=== PATIENT | female | born 1980 | race Two or more races ===

== ENCOUNTER 2020-06-25 11:10 | Emergency (ER) | payer SELFPAY ==
[~2020-06-25] VITALS: Ht 167.6 cm; Wt 85.0 kg
[~2020-06-25 11:10] MED LIST: ONDA4TAB10 SL
[2020-06-25] MEDS ORDERED: ASPIRIN 325 MG TABLET PO ONE (11:30)
[2020-06-25 11:41] LABS: BASO # 0.1 x10^3/uL (0.0-0.2); BASO % 1 % (0-3); EOS # 0.1 x10^3/uL (0.0-0.7); EOS % 1 % (0-3); HEMATOCRIT 34.1 % (36.0-47.0); HEMOGLOBIN 11.1 g/dL (12.0-15.5); LYMPH % 19 % (24-48); MEAN CORPUSCULAR HEMOGLOBIN 26 pg (25-35); MEAN CORPUSCULAR HGB CONC 32 g/dL (31-37); MEAN CORPUSCULAR VOLUME 79 fL (79-100); MONO # 0.6 x10^3/uL (0.0-1.1); MONO % 6 % (0-9); NEUT # 7.6 x10^3/uL (1.8-7.7); NEUT % 73 % (31-73); PLATELET COUNT 328 x10^3/uL (140-400); RED BLOOD COUNT 4.29 x10^6/uL (3.50-5.40); RED CELL DISTRIBUTION WIDTH 15.4 % (11.5-14.5); WHITE BLOOD COUNT 10.4 x10^3/uL (4.0-11.0)
--- NOTE | 2020-06-25 11:46 | RAD ---
PORTABLE CHEST 1V History: Reason: chest paiN / Spl. Instructions: / History: Comparison: None. Findings: Low lung volumes. Patchy bibasilar opacities, left greater than right. Small left pleural effusion. No pneumothorax. Impression: 1. Low lung volumes with patchy bibasilar opacities, may represent atelectasis or developing consolidations. Recommend follow-up. 2. Small left pleural effusion. Electronically signed by: Jose Leigh DO (06/25/2020 11:43 AM) [id number]
[2020-06-25 11:52] LABS: CALCIUM 9.1 mg/dL (8.5-10.1); CREATININE 0.6 mg/dL (0.6-1.0); GFR 111.9
[2020-06-25 11:57] LABS: ALBUMIN 3.8 g/dL (3.4-5.0); ALBUMIN/GLOBULIN RATIO 0.9 (1.0-1.7); MAGNESIUM 2.1 mg/dL (1.8-2.4); TOTAL BILIRUBIN 0.1 mg/dL (0.2-1.0); TOTAL PROTEIN 7.9 g/dL (6.4-8.2)
[2020-06-25] MEDS: MORPHINE SULFATE 4 MG/ML VIAL. IV/SQ PRN ×2 (12:01→13:40)
--- NOTE | 2020-06-25 12:06 | PHYS DOC ---
Past Medical History Past Medical History: Cancer, Other Additional Past Medical Histor: CA OF PELVIS Past Surgical History: , Tubal ligation Smoking Status: Current Every Day Smoker Alcohol Use: None Drug Use: None General Adult EDM: Chief Complaint: CHEST PAIN HPI: HPI: Patient is a 39 year old 39-year-old female patient presenting to the ED today complaining of a 10 out of 10 sharp constant left-sided chest pain that began yesterday midday. Patient states the pain is worse when she lays on her back. She states she tried Tylenol with no relief. Denies any fever, coughing, congestion. Denies any chance she is , she states her tubes are tied. She states she is a smoker. Denies any pain radiating to bilateral upper extremities of the neck. Review of Systems: Review of Systems: Constitutional: Denies fever or chills. [] Eyes: Denies change in visual acuity. [] HENT: Denies nasal congestion or sore throat. [] Respiratory: Denies cough or shortness of breath. [] Cardiovascular: Reports chest pain GI: Denies abdominal pain, nausea, vomiting, bloody stools or diarrhea. [] : Denies dysuria. [] Musculoskeletal: Denies back pain or joint pain. [] Integument: Denies rash. [] Neurologic: Denies headache, focal weakness or sensory changes. [] Psychiatric: Denies depression or anxiety. [] Heart Score: HEART Score for Chest Pain: HEART Score for Chest Pain Response (Comments) Value History Slighlty/Non-Suspicious 0 ECG Normal 0 Age < 45 0 Risk Factors 1 or 2 Risk Factors 1 Troponin < Normal Limit 0 Total 1 Risk Factors: Risk Factors: DM, Current or recent (<one month) smoker, HTN, HLP, family history of CAD, obesity. Risk Scores: Score 0 - 3: 2.5% MACE over next 6 weeks - Discharge Home Score 4 - 6: 20.3% MACE over next 6 weeks - Admit for Clinical Observation Score 7 - 10: 72.7% MACE over next 6 weeks - Early Invasive Strategies Current Medications: Current Medications Medications (Trade) Dose Ordered Sig/Johnson Start Time Stop Time Status Last Admin Dose Admin Aspirin (Eloy Aspirin) 325 mg 1X ONCE 06/25/20 11:30 06/25/20 11:31 DC Morphine Sulfate (Morphine Sulfate) 4 mg PRN Q15MIN PRN 06/25/20 11:30 06/26/20 11:29 Allergies: Allergies: Allergies Coded Allergies Type Severity Reaction Last Updated Verified No Known Drug Allergies 08/28/16 No Physical Exam: PE: Constitutional: Well developed, well nourished, no acute distress, non-toxic appearance. [] HENT: Normocephalic, atraumatic, bilateral external ears normal, oropharynx moist, no oral exudates, nose normal. [] Eyes: PERRLA, EOMI, conjunctiva normal, no discharge. [] Neck: Normal range of motion, no tenderness, supple, no stridor. [] Cardiovascular:Heart rate regular rhythm, no murmur [] Lungs & Thorax: Bilateral breath sounds clear to auscultation [] Abdomen: Bowel sounds normal, soft, no tenderness, no masses, no pulsatile masses. [] Skin: Warm, dry, no erythema, no rash. [] Back: No tenderness, no CVA tenderness. [] Extremities: No tenderness, no cyanosis, no clubbing, ROM intact, no edema. [] Neurologic: Alert and oriented X 3, normal motor function, normal sensory function, no focal deficits noted. [] Psychologic: Affect normal, judgement normal, mood normal. [] Current Patient Data: Labs: Laboratory Tests Test 06/25/20 11:25 White Blood Count 10.4 x10^3/uL (4.0-11.0) Red Blood Count 4.29 x10^6/uL (3.50-5.40) Hemoglobin 11.1 g/dL (12.0-15.5) L Hematocrit 34.1 % (36.0-47.0) L Mean Corpuscular Volume 79 fL (79-100) Mean Corpuscular Hemoglobin 26 pg (25-35) Mean Corpuscular Hemoglobin Concent 32 g/dL (31-37) Red Cell Distribution Width 15.4 % (11.5-14.5) H Platelet Count 328 x10^3/uL (140-400) Neutrophils (%) (Auto) 73 % (31-73) Lymphocytes (%) (Auto) 19 % (24-48) L Monocytes (%) (Auto) 6 % (0-9) Eosinophils (%) (Auto) 1 % (0-3) Basophils (%) (Auto) 1 % (0-3) Neutrophils # (Auto) 7.6 x10^3/uL (1.8-7.7) Lymphocytes # (Auto) 2.0 x10^3/uL (1.0-4.8) Monocytes # (Auto) 0.6 x10^3/uL (0.0-1.1) Eosinophils # (Auto) 0.1 x10^3/uL (0.0-0.7) Basophils # (Auto) 0.1 x10^3/uL (0.0-0.2) Sodium Level 138 mmol/L (136-145) Potassium Level 4.0 mmol/L (3.5-5.1) Chloride Level 102 mmol/L (98-107) Carbon Dioxide Level 27 mmol/L (21-32) Anion Gap 9 (6-14) Blood Urea Nitrogen 10 mg/dL (7-20) Creatinine 0.6 mg/dL (0.6-1.0) Estimated GFR (Cockcroft-Gault) 111.9 BUN/Creatinine Ratio 17 (6-20) Glucose Level 101 mg/dL (70-99) H Calcium Level 9.1 mg/dL (8.5-10.1) Magnesium Level 2.1 mg/dL (1.8-2.4) Total Bilirubin 0.1 mg/dL (0.2-1.0) L Aspartate Amino Transferase (AST) 20 U/L (15-37) Alanine Aminotransferase (ALT) 21 U/L (14-59) Alkaline Phosphatase 109 U/L (46-116) Troponin I Quantitative < 0.017 ng/mL (0.000-0.055) Total Protein 7.9 g/dL (6.4-8.2) Albumin 3.8 g/dL (3.4-5.0) Albumin/Globulin Ratio 0.9 (1.0-1.7) L Laboratory Tests 06/25/20 11:25 Laboratory Tests 06/25/20 11:25 EKG: EK interpreted by Dr. Fatima sinus rhythm HR 64 no STEMI Radiology/Procedures: Radiology/Procedures: []PROCEDURE: PORTABLE CHEST 1V PORTABLE CHEST 1V History: Reason: chest paiN / Spl. Instructions: / History: Comparison: None. Findings: Low lung volumes. Patchy bibasilar opacities, left greater than right. Small left pleural effusion. No pneumothorax. Impression: 1. Low lung volumes with patchy bibasilar opacities, may represent atelectasis or developing consolidations. Recommend follow-up. 2. Small left pleural effusion. Electronically signed by: Jose Jasso DO (06/25/2020 11:43 AM) [id number] DICTATED and SIGNED BY: JOSE JASSO DO DATE: 06/25/20 [id number] 0 Course & Med Decision Making: Course & Med Decision Making Pertinent Labs and Imaging studies reviewed. (See chart for details) This is a 39-year-old female patient presented to the ED today complaining of left-sided chest pain that began yesterday. EKG is negative. Troponin is normal. CBC with no acute findings. CMP with no acute findings. Chest x-ray noted for bilateral atelectasis or developing infiltrates. COVID-19 swabs obtained. O2 sats above 98% on room air, temperature is normal. Given Rocephin and azithromycin as well as Solu-Medrol in the ED. Discharged with prednisone, azithromycin. Follow-up with PCP in the course of this week or next week. Leif Disclaimer: Dragmomo Disclaimer: This electronic medical record was generated, in whole or in part, using a voice recognition dictation system. Departure Departure Impression: Primary Impression: Bilateral pneumonia Qualified Codes: J18.9 - Pneumonia, unspecified organism Additional Impressions: Person under investigation for COVID-19 Chest pain Qualified Codes: R07.9 - Chest pain, unspecified Disposition: 01 DC HOME SELF CARE/HOMELESS Condition: STABLE Referrals: NO PCP (PCP) follow up with your doctor in 1 week Patient Instructions: Chest Pain (Nonspecific), [id number], Pneumonia, Adult, [id number] Additional Instructions: You were evaluated in the emergency room for chest pain and noted to have pneumonia. We will put you on medications, take them as prescribed until completed. You were tested for COVID-19, we will call you with results for soon as they are available. In the meantime quarantine yourself, rest, push fluids. Scripts Prednisone (PREDNISONE) 50 Mg Tablet 1 TAB PO DAILY, #5 TAB Prov: MUTUNGAZANDER COURSEWARE DEVELOPER 06/25/20 Azithromycin (ZITHROMAX) 250 Mg Tablet 1 PKG PO UD, #1 PKG Prov: ZANDER BLOOD APRN 06/25/20 ZANDER BLOOD APRN Jun 25, 2020 12:05
--- NOTE | 2020-06-25 12:20 | EKG ---
[facility] [address] [place] [address] Test Date: 2020-06-25 Test Time: 11:20:12 Pat Name: LUCY JAEGER Department: Room: Gender: F Therapeutic Dietitian: : 1980 Requested By: ZANDER BLOOD Order Number: [id number] Reading MD: Measurements Intervals [place] Rate: 94 P: 41 IN: 138 QRS: 4 QRSD: 86 T: 26 QT: 338 QTc: 423 Interpretive Statements SINUS RHYTHM NORMAL ECG RI6.02 No previous ECG available for comparison
[2020-06-25] MEDS ORDERED: cefTRIAXone IV Push 1 GM VIAL. IVP ONE (13:00)
[2020-06-25] MEDS ORDERED: methylPREDNISolone SOD SUCC PF 125 MG/2 ML VIAL. IV ONE (13:00)
[2020-06-25] MEDS ORDERED: AZITHRMYCN 500MG IVPB FOR OMNI 250 ML IV ONE (13:00)
[2020-06-25] MEDS ORDERED: AZIT250T PO (14:11)
[2020-06-25] MEDS ORDERED: PRED50TA PO (14:11)
[2020-06-25 14:34] VITALS: BP 101/63
== END 2020-06-25 15:00 | disposition home or self-care (01) ==
LOC: ER 11:10
DX: J18.9 Pneumonia, unspecified organism (principal); Z20.828 Contact with and (suspected) exposure to other viral communicable diseases; R07.89 Other chest pain; F17.200 Nicotine dependence, unspecified, uncomplicated; Z98.890 Other specified postprocedural states; Z98.51 Tubal ligation status; Z85.9 Personal history of malignant neoplasm, unspecified
CPT/HCPCS: 36415; 71045; 80053; 83735; 83880; 84443; 84484; 85025; 85379; 93005; 96365; 96375; 96376; 99285; C9803; J0456; J0696; J2270; J2930; U0003